=== PATIENT | male | born 1990 | race Native Hawaiian/Other Pacific Islander ===

== ENCOUNTER 2019-09-11 12:02 | Emergency (ER) | payer OTHER ==
[~2019-09-11] VITALS: Ht 162.6 cm; Wt 70.5 kg
[2019-09-11] MEDS ORDERED: LIDOCAINE 2% W/EPIN INJ 20ML **PRES FREE INJ ONE (12:45)
--- NOTE | 2019-09-11 12:49 | REP ---
Clinical: Right facial trauma . Comparison: None . Findings: Right facial and periorbital subcutaneous soft tissue swelling consistent with given history of trauma. The ventricles, sulci, and cisterns are normal in position and appearance. Cuello-white differentiation is maintained. No acute intracranial hemorrhage, mass/mass effect, pathology or trauma/injury. No evidence for acute infarction. No extra-axial fluid collection. Calvarium is intact. Paranasal sinuses and mastoid air cells are clear. Impression: Normal noncontrast head CT. No evidence for acute intracranial pathology or trauma/injury. Right facial soft tissue swelling. Electronically Signed by Vidal Michele MD 09/11/2019 12:40 P
[2019-09-11 13:30] VITALS: BP 135/77
--- NOTE | 2019-09-13 11:38 | ECGEPIP ---
[facility] - ED Test Date: 2019-09-11 Pat Name: JIGNESH KUMAR Department: Room: - Gender: Male Heel Sorter: : 1990 Requested By: Thierry Sanchez Order Number: [id number] Reading MD: Nona Martin Measurements Intervals [place] Rate: 63 P: 56 PA: 275 QRS: 41 QRSD: 98 T: 21 QT: 401 QTc: 412 Interpretive Statements SINUS RHYTHM WITH FIRST DEGREE AV BLOCK ST ELEVATION, PROBABLY EARLY REPOLARIZATION, CLINICAL CORRELATION NO PRIOR Electronically Signed on 09-13-2019 11:38:19 EST by Nona Martin
== END 2019-09-11 14:03 | disposition home or self-care (01) ==
LOC: EDBD 12:02 → M ED 12:02
DX: R55 Syncope and collapse (principal); S01.419A Laceration without foreign body of unspecified cheek and temporomandibular area, initial encounter; I44.0 Atrioventricular block, first degree; W19.XXXA Unspecified fall, initial encounter; Y92.138 Other place on military base as the place of occurrence of the external cause; Y93.89 Activity, other specified; Y99.1 Military activity